=== PATIENT | female | born 1960 | race Caucasian/White ===

== ENCOUNTER 2020-04-21 14:14 | Emergency (ER) | payer OTHER ==
--- NOTE | 2020-04-21 14:30 | ER Document Report ---
ED Medical Screen (RME) - General Chief Complaint: Numbness Stated Complaint: HEADACHE Time Seen by Provider: 04/21/20 14:20 - HPI Notes: 04/21/20 14:27 5-year-old female presents emergency room with severe right occipital headache that started at 11 AM this morning with right-sided numbness and tingling and weakness. Reports his worst headache of her life. No prior history of migraines or headaches patient states that she had a similar event where she had right occipital pain 2 days ago, states she took a Motrin and her pain was relieved, did not have any facial disturbances at that time. Pain has been constant since 11 AM, states she took an extra strength Tylenol to give some relief but since then has been a dull ache. Patient is not on any blood thinners. Only takes prophylactic fish oil daily, no history of hypertension. Patient does not have a prior history of CVA. Denies any blurred vision double vision loss of vision. Does have some photophobia. Denies any trauma to head. Denies any numbness or tingling to bilateral arms or legs. Denies any chest pain or shortness of breath, denies any fevers or chills I have greeted and performed a rapid initial assessment of this patient. A comprehensive ED assessment and evaluation of the patient, analysis of test results and completion of the medical decision making process will be conducted by additional ED providers. PHYSICAL EXAMINATION: GENERAL: Well-appearing, well-nourished and in no acute distress. HEAD: Atraumatic, normocephalic. Normal sensation bilaterally on face to touch EYES: Pupils equal round extraocular movements intact, conjunctiva are normal. NECK: Normal range of motion CV: s1, s2 regular LUNGS: No respiratory distress Musculoskeletal: Normal range of motion NEUROLOGICAL: Normal speech, normal gait. PERRLA, EOMI. Full motor and sensory function throughout. 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 slight right facial droop. Tongue midline. No pronator drift. No ataxia. Neck with APROM. Raises eyebrows. Strength is 5 out of 5 in bilateral upper and lower extremities equally.Speaks in full sentences. No weakness on one side. Romberg gait steady able to walk straight line. SKIN: Warm, Dry, normal turgor, no rashes or lesions noted. - Related Data Allergies/Adverse Reactions: erythromycin base Allergy (Verified 04/21/20 14:20) Penicillins Allergy (Verified 04/21/20 14:20) Physical Exam - Vital signs Vitals: Temp Pulse Resp BP Pulse Ox 98.8 F 105 H 24 H 167/87 H 98 04/21/20 14:19 04/21/20 14:19 04/21/20 14:19 04/21/20 14:19 04/21/20 14:19 Course - Vital Signs Vital signs: Temp Pulse Resp BP Pulse Ox 98.8 F 105 H 24 H 167/87 H 98 04/21/20 14:19 04/21/20 14:19 04/21/20 14:19 04/21/20 14:19 04/21/20 14:19
--- NOTE | 2020-04-21 14:50 | ER Document Report ---
ED General - General Chief Complaint: Numbness Stated Complaint: HEADACHE Time Seen by Provider: 04/21/20 14:20 Notes: Patient is a 59-year-old white female with a history of uterine cancer status post hysterectomy in remission with no other reported significant medical history who presents to the emergency department the chief complaint of sudden onset headache that first began yesterday. She states yesterday she had a random sudden sharp pain in the right posterior parietal/occipital region. States she took some ibuprofen and it helped to alleviate that to some degree. She states it was still down to a slight ache and eventually resolved. She states today around 10 AM she had another sudden sharp pain in the same area. She states she took Tylenol and it did not help. She states around 11 AM she noticed that the right side of her face felt abnormal. She describes it as feeling tingly and "weird". States it felt weak. Patient states the face still feels the same here upon arrival. She denies any extremity weakness or numbness or tingling. Denies any chest pain. No shortness of breath. No abdominal pain. No nausea, vomiting or diarrhea. No visual disturbances. No fevers. No neck pain. - Related Data Allergies/Adverse Reactions: erythromycin base Allergy (Verified 04/21/20 14:20) Penicillins Allergy (Verified 04/21/20 14:20) Past Medical History - Social History Smoking Status: Never Smoker Family History: Reviewed & Not Pertinent Patient has homicidal ideation: No Review of Systems - Review of Systems Constitutional: denies: Fever EENT: denies: Blurred vision Cardiovascular: denies: Chest pain Respiratory: denies: Short of breath Gastrointestinal: denies: Abdominal pain, Diarrhea, Nausea, Vomiting Genitourinary: denies: Pain Female Genitourinary: denies: Vaginal discharge Musculoskeletal: denies: Back pain, Neck pain Skin: denies: Change in color Hematologic/Lymphatic: denies: Easy bleeding, Easy bruising Neurological/Psychological: Headaches, Tingling Physical Exam - Vital signs Vitals: Temp Pulse Resp BP Pulse Ox 98.8 F 105 H 24 H 167/87 H 98 04/21/20 14:19 04/21/20 14:19 04/21/20 14:19 04/21/20 14:19 04/21/20 14:19 - General General appearance: Appears well, Alert In distress: None - HEENT Head: Normocephalic, Atraumatic Eyes: Normal Conjunctiva: Normal Extraocular movements intact: Yes Eyelashes: Normal Pupils: PERRL Ears: Normal External canal: Normal Tympanic membrane: Normal Mouth/Lips: Normal Mucous membranes: Normal Pharynx: Normal Neck: Normal - Respiratory Respiratory status: No respiratory distress Chest status: Nontender Breath sounds: Normal Chest palpation: Normal - Cardiovascular Rhythm: Regular Heart sounds: Normal auscultation Murmur: No Notes: No bruits auscultated bilateral carotids - Abdominal Inspection: Normal Distension: No distension Bowel sounds: Normal Tenderness: Nontender Organomegaly: No organomegaly - Extremities General upper extremity: Normal inspection, Nontender, Normal color, Normal ROM, Normal temperature General lower extremity: Normal inspection, Nontender, Normal color, Normal ROM, Normal temperature, Normal weight bearing. No: Noy's sign - Neurological Neuro grossly intact: Yes Cognition: Normal Orientation: AAOx4 Jennifer Coma Scale Eye Opening: Spontaneous Jennifer Coma Scale Verbal: Oriented Jennifer Coma Scale Motor: Obeys Commands Ina Coma Scale Total: 15 Speech: Normal Cranial nerves: Normal Cerebellar coordination: Normal, Other - Normal finger-nose, normal [id number], no gait ataxia. Normal rapid alternating hand movements. Gag intact. Normal tongue protrusion with side to side movement. 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 No: Involuntary movements, Pronator drift, Weakness, Hemiplegia Sensory: Normal, Other - Normal sensory bilateral face, upper extremities and lower extremities Notes: NIH 0 - Psychological Associated symptoms: Normal affect, Normal mood - Skin Skin Temperature: Warm Skin Moisture: Dry Skin Color: Normal Course - Re-evaluation Re-evalutation: 04/21/20 14:57 Initial exam is completely benign, normal nonfocal. Subjective tingling and weakness to the right face however cranial nerves II through XII are intact as tested. She is slightly tachycardic in the low 100s but fluctuates down to the 90s. Her blood pressures in the 180s over high 70s to 80s. She has no history of hypertension. We will give 10 a labetalol IV, she is on the monitor. Attempt to lower her blood pressure below [address] scan of the head was negative for any acute hemorrhagic process per radiologist. Will order MRI. 04/21/20 16:31 EK. Sinus tach at 114 bpm. Otherwise normal intervals. No STEMI. Interpreted by ED attending. 04/21/20 16:54 Labetalol was held as when the nurse went to give the medicine she ran a blood pressure first showed the patient to be in the systolics of 130s. The medicine will be held for now. The MRI was negative for any acute process per radiologist as well. Her work-up was otherwise largely unremarkable. I feel strongly the patient is not having a CVA or TIA. She has an NIH of 0. I suspect that this is a type of atypical complex migraine. We will give her a cocktail of medicines for headache and nausea as well as a liter bolus of normal saline and reevaluate. 04/21/20 18:26 Reevaluation at this time. Patient states that her headache has completely resolved. She states that her face feels completely normal has no further complaints at this time. NIH is still 0. Doubt CVA or TIA. Normal CT and MRI. Strongly suspect new onset atypical complex migraine. Will refer to neurology. The patient reports that she [place] hours from here and is familiar with urologists in her hometown. She states that she will happily call and follow-up with a neurologist there. Discussed with her and her the importance of follow-up and advised that they return here or any ER immediately with any new, persistent or worsening symptoms. They verbalized understood and agreed. - Vital Signs Vital signs: Temp Pulse Resp BP Pulse Ox 98.8 F 112 H 18 141/76 H 95 04/21/20 14:19 04/21/20 14:37 04/21/20 16:46 04/21/20 16:46 04/21/20 16:46 - Laboratory Result Diagrams: 04/21/20 14:41 04/21/20 14:41 Laboratory results interpreted by me: 04/21/20 14:41 RDW 15.8 H Discharge - Discharge Clinical Impression: Facial tingling Acute headache Qualifiers: Headache type: unspecified Intractability: not intractable Qualified Code(s): R51 - Headache Condition: Stable Disposition: HOME, SELF-CARE Instructions: Headache ([facility]) Additional Instructions: Please call the neurologist in your hometown for outpatient follow-up for further evaluation and management. Please return here or any ER immediately with any new, persistent or worsening symptoms.
[2020-04-21] MEDS ORDERED: LABETALOL HCL INJ 20 MG/4 ML DISP.SYRIN IV ONE (14:54)
--- NOTE | 2020-04-21 14:56 | RADIOLOGY REPORT (SQ) ---
EXAM DESCRIPTION: CT HEAD WITHOUT IMAGES COMPLETED DATE/TIME: 04/21/2020 2:38 pm REASON FOR STUDY: worst ESCAMILLA of life, R facial numbness at 11am today Stroke alert COMPARISON: None. TECHNIQUE: Axial images acquired through the brain without intravenous contrast. Images reviewed wi th bone, brain and subdural windows. Images stored on PACS. All CT scanners at this facility use dose modulation, iterative reconstruction, and/or weight based d osing when appropriate to reduce radiation dose to as low as reasonably achievable (ALARA). [facility]: Dose Right [facility]: CareDose [facility]: Dose Right [facility]: Teradose 4D [facility]: Smart Apliiq RADIATION DOSE: CT Rad equipment meets quality standard of care and radiation dose reduction techniq ues were employed. CTDIvol: 53.2 mGy. DLP: 991 mGy-cm. mGy. LIMITATIONS: None. FINDINGS: VENTRICLES: Normal size and contour. CEREBRUM: No mass effect. No hemorrhage. No midline shift. Normal keller/white matter differentiatio n. No evidence for acute territorial infarction. CEREBELLUM: No mass effect. No hemorrhage. No alteration of density. No evidence for acute infarct ion. EXTRAAXIAL SPACES: No fluid collections. ORBITS AND GLOBE: Symmetrical contour of the globes. CALVARIUM: No depressed skull fracture. PARANASAL SINUSES: No air-fluid level. SOFT TISSUES: No hematoma. IMPRESSION: No acute intracranial hemorrhage or acute territorial infarct. EVIDENCE OF ACUTE STROKE: NO. COMMUNICATION The critical information above was relayed directly by me by telephone to Dr. Camp on 04/21/2020 at 14:46 hours with readback verification. Quality ID # [id number]: Final reports with documentation of one or more dose reduction techniques (e.g., Au tomated exposure control, adjustment of the mA and/or kV according to patient size, use of iterative reconstruction technique) TECHNICAL DOCUMENTATION: JOB ID: [id number]- All Rights Reserved Reading location - IP/workstation name: [email or web address]
[2020-04-21 15:05] LABS: ABSOLUTE EOSINOPHILS # (AUTO) 0.3 10^3/uL (0.0-0.6); ABSOLUTE LYMPHOCYTES (AUTO) 1.5 10^3/uL (0.5-4.7); ABSOLUTE MONOCYTES (AUTO) 0.6 10^3/uL (0.1-1.4); ABSOLUTE NEUT (AUTO) 4.8 10^3/uL (1.7-8.2); BASOPHILS % (AUTO) 0.5 % (0-2); EOSINOPHILS % (AUTO) 4.7 % (0-6); HEMATOCRIT 41.9 % (36.0-47.0); HEMOGLOBIN 13.9 g/dL (12.0-15.5); LYMPHOCYTES % (AUTO) 20.4 % (13-45); MEAN CORPUSCULAR HEMOGLOBIN 28.2 pg (27.0-33.4); MEAN CORPUSCULAR HGB CONC 33.3 g/dL (32.0-36.0); MEAN CORPUSCULAR VOLUME 85 fl (80-97); MONOCYTES % (AUTO) 7.9 % (3-13); PLATELET COUNT 302 10^3/uL (150-450); RED BLOOD COUNT 4.94 10^6/uL (3.72-5.28); RED CELL DISTRIBUTION WIDTH 15.8 % (11.5-14.0); SEGMENTED NEUTROPHILS % (AUTO) 66.5 % (42-78); TOTAL CELLS COUNTED % (AUTO) 100 %; WHITE BLOOD COUNT 7.3 10^3/uL (4.0-10.5)
--- NOTE | 2020-04-21 15:08 | RADIOLOGY REPORT (SQ) ---
EXAM DESCRIPTION: CHEST SINGLE VIEW IMAGES COMPLETED DATE/TIME: 04/21/2020 2:58 pm REASON FOR STUDY: ESCAMILLA neuro changes COMPARISON: None. EXAM PARAMETERS: NUMBER OF VIEWS: One view. TECHNIQUE: Single frontal radiographic view of the chest acquired. RADIATION DOSE: NA LIMITATIONS: None. FINDINGS: LUNGS AND PLEURA: No consolidation, pneumothorax or pleural effusion. MEDIASTINUM AND HILAR STRUCTURES: No masses. Contour normal. HEART AND VASCULAR STRUCTURES: Heart normal in size. Normal vasculature. BONES: Partially visualized orthopedic hardware at the lower cervical spine. Multilevel degenerative changes at the spine. HARDWARE: None in the chest. IMPRESSION: No acute radiographic finding in the chest. TECHNICAL DOCUMENTATION: JOB ID: [id number] 2010 [employer]- All Rights Reserved Reading location - IP/workstation name: [email or web address]
[2020-04-21 15:15] LABS: INTERNATIONAL RATION (INR) 0.85; PARTIAL THROMBOPLASTIN TIME 25.9 SEC (23.5-35.8); PROTHROMBIN TIME 11.8 SEC (11.4-15.4)
[2020-04-21 15:18] LABS: ALBUMIN 4.1 g/dL (3.5-5.0); ALKALINE PHOSPHATASE 109 U/L (38-126); ANION GAP 6 (5-19); ASPARTATE AMINO TRANSFERASE 29 U/L (14-36); BILIRUBIN,TOTAL 0.4 mg/dL (0.2-1.3); BLOOD UREA NITROGEN 18 mg/dL (7-20); CALCIUM 9.2 mg/dL (8.4-10.2); CARBON DIOXIDE 27 mmol/L (22-30); CHLORIDE 106 mmol/L (98-107); CREATINE KINASE 97 U/L (30-135); GLUCOSE 105 mg/dL (75-110); POTASSIUM 4.1 mmol/L (3.6-5.0); TOTAL PROTEIN 6.9 g/dL (6.3-8.2)
[2020-04-21 15:28] LABS: CREATINE KINASE MB 1.75 ng/mL (<4.55)
[2020-04-21 15:29] LABS: TROPONIN I < 0.012 ng/mL
[2020-04-21] MEDS ORDERED: KETOROLAC TROMETHAMINE INJ/PF 30 MG/1 ML SDV IV ONE (16:14)
--- NOTE | 2020-04-21 16:14 | RADIOLOGY REPORT (SQ) ---
EXAM DESCRIPTION: MRI HEAD WITHOUT IMAGES COMPLETED DATE/TIME: 04/21/2020 2:58 pm REASON FOR STUDY: ESCAMILLA R facial numbness COMPARISON: CT head same date. TECHNIQUE: Multiplanar imaging includes non-contrasted T1, T2, FLAIR, and diffusion with ADC map seq uences. Images stored on PACS. LIMITATIONS: None. FINDINGS: ANATOMY: No anomalies. Normal vascular flow voids. Pituitary fossa normal. CSF SPACES: Normal in size and contour. No hemorrhage. CEREBRUM: Sulci and gyri normal in size and contour. Normal white matter signal on FLAIR imaging. No evidence of hemorrhage, mass, or extraaxial fluid collection. POSTERIOR FOSSA: No signal alteration. No hemorrhage. No edema, masses or mass effect. Internal cesar tory canals, cerebello-pontine angles, mastoids normal. DIFFUSION IMAGING: Negative for acute or sub-acute infarction. ORBITS: No masses. Globes normal. PARANASAL SINUSES: No fluid levels. Mucosa normal. OTHER: No other significant finding. IMPRESSION: NORMAL MRI OF THE BRAIN WITHOUT INTRAVENOUS GADOLINIUM CONTRAST. EVIDENCE OF ACUTE STROKE: NO. TECHNICAL DOCUMENTATION: JOB ID: [id number] [employer]- All Rights Reserved Reading location - IP/workstation name: [email or web address]
[2020-04-21] MEDS ORDERED: DIPHENHYDRAMINE HCL 50 MG/ML VIAL IV ONE (16:19)
[2020-04-21] MEDS ORDERED: METOCLOPRAMIDE HCL INJ/PF 10 MG/2 ML SDV IV ONE (16:19)
[2020-04-21] MEDS ORDERED: NORMAL SALINE 1000 ML 1,000 ML IV ONE (16:19)
[2020-04-21 19:05] VITALS: BP 145/67
--- NOTE | 2020-04-21 19:55 | EKG REPORT ---
SEVERITY:- ABNORMAL ECG - SINUS TACHYCARDIA PROBABLE INFERIOR INFARCT, AGE INDETERMINATE CONSIDER POSTERIOR WALL INVOLVEMENT : Confirmed by: Dillan More MD 21-Apr-2020 19:54:29
== END 2020-04-21 19:10 | disposition home or self-care (01) ==
LOC: ER 14:14
DX: R20.2 Paresthesia of skin (principal); R51 Headache; Z88.3 Allergy status to other anti-infective agents; Z88.0 Allergy status to penicillin; Z85.42 Personal history of malignant neoplasm of other parts of uterus
CPT/HCPCS: 93005; 99284; 96361; 96374; 96375; 36415; 82553; 82550; 85025; 85610; 85730; 80053; 84484; 70551; 71045; 70450; 93010; J1200; J1885; J2765; J7030